=== PATIENT | female | born 1960 | race African-American/Black ===

== ENCOUNTER 2019-07-08 00:02 | Emergency (ER) | payer OTHER ==
[2019-07-08 00:59] VITALS: BP 148/84; PULSE 81; TEMP 98; BMI 30.2
--- NOTE | 2019-07-08 01:01 | PDOC ---
History of Present Illness - General Chief Complaint: Pain, Acute Stated Complaint: BREAST PROBLEM - History of Present Illness Initial Comments: The pt is a 58F w/ a history of HTN and DM who presents for evaluation of a left breast mass for three days. She denies ever noticing it before and has never had a previous breast mass. She denies pain, redness, drainage/discharge, fevers/chills. She denies history of breast or ovarian cancer in her or her primary family members. 07/08/19 01:26 Past History - Past Medical History Allergies/Adverse Reactions: Allergies Allergy/AdvReac Type Severity Reaction Status Date / Time No Known Allergies Allergy Verified 07/08/19 00:30 - Psycho Social/Smoking Cessation Hx Smoking History: Never smoked Hx Alcohol Use: No Drug/Substance Use Hx: No Review of Systems - Review of Systems Able to Perform ROS?: Yes Comments:: GENERAL/CONSTITUTIONAL: No fever or chills. No weakness HEAD, EYES, EARS, NOSE AND THROAT: No change in vision. No change in hearing. No sore throat CARDIOVASCULAR: No chest pain or shortness of breath RESPIRATORY: Denies cough, hemoptysis GASTROINTESTINAL: No nausea, vomiting, diarrhea or constipation GENITOURINARY: No dysuria, frequency, or change in urination MUSCULOSKELETAL: No joint or muscle swelling or pain. No neck or back pain SKIN: No rash NEUROLOGIC: No headache, vertigo, loss of consciousness, or change in strength/ sensation ENDOCRINE: No increased thirst. No abnormal weight change HEMATOLOGIC/LYMPHATIC: No anemia, easy bleeding, or history of blood clots ALLERGIC/IMMUNOLOGIC: No hives or skin allergy 07/08/19 00:58 Is the patient limited Hungarian proficient: No *Physical Exam - Vital Signs Last Vital Signs Temp Pulse Resp BP Pulse Ox 98.0 F 81 18 148/84 99 07/08/19 00:28 07/08/19 00:28 07/08/19 00:28 07/08/19 00:28 07/08/19 00:28 - Physical Exam Comments: GENERAL: Awake, alert, and oriented to person/place/time, in no acute distress HEAD: No signs of trauma, normocephalic, atraumatic EYES: PERRLA, EOMI, sclera anicteric, conjunctiva clear ENT: Hearing grossly normal, nares patent, oropharynx clear without exudates. Moist mucosa LUNGS: No distress, speaks in full sentences, clear to auscultation bilaterally BREAST: 1.5x1.5cm mass palpated at the 12 o'clock position approx 3-4 cm from left nipple HEART: Regular rate and rhythm, normal S1 and S2, no murmurs appreciated, peripheral pulses normal and equal bilaterally ABDOMEN: Soft, nontender, normoactive bowel sounds. No guarding, no rebound EXTREMITIES: Normal inspection, Normal range of motion, no edema. No clubbing or cyanosis NEUROLOGICAL: Cranial nerves II through XII grossly intact. Normal speech, no focal sensorimotor deficits SKIN: Warm, Dry 07/08/19 00:58 Medical Decision Making - Medical Decision Making The pt is a 58F w/ a history of HTN and DM who presents for evaluation of a left breast mass for three days. Ddx: Fibroma, malignancy, less likely abscess Plan for D/C w/ Breast Clinic f/u Discharge instructions and return precautions given Patient in agreement and verbalized understanding Dispo: Home 07/08/19 01:33 Discharge - Discharge Information Problems reviewed: Yes Clinical Impression/Diagnosis: Left breast mass Condition: Stable Disposition: HOME - Admission No - Follow up/Referral Referrals: Dutch Knutson MD [Staff Physician] - Brett Knutson [Staff Physician] - Ledy Baker MD [Staff Physician] - - Patient Discharge Instructions Patient Printed Discharge Instructions: DI for Breast Mass -- Uncertain Cause Additional Instructions: You were seen in the Emergency Department for evaluation of a breast mass. It is important for you to follow up in Breast Clinic to evaluate if the mass could be cancer. Referrals were provided. Call Wednesday to schedule an appointment. Return to the Emergency Department if you develop fevers, chest pain, trouble breathing, worsening pain, change in sensation, worsening symptoms, or any new/ concerning symptoms. - Post Discharge Activity
--- NOTE | 2019-07-08 01:30 | PDOC ---
Attending Attestation - Resident Resident Name: Jesus Cárdenasan - ED Attending Attestation I have performed the following: I have examined & evaluated the patient, The case was reviewed & discussed with the resident, I agree w/resident's findings & plan, Exceptions are as noted - HPI HPI: 07/08/19 01:25 Ms. Guthrie is a 58 yo F who presents to the ER with a complaint of left breast mass The patient has a history of hypertension and diabetes She noticed over the past 2 days a mass in the left breast Patient's family member brought her to the ER for assessment Nontender No drainage No erythema No skin changes - Physicial Exam PE: 07/08/19 01:30 GENERAL: The patient is in no acute distress. ENT: Ears normal, nares patent, oropharynx clear without exudates. Moist mucous membranes. NECK: Normal range of motion BREAST: left breast mass, measures 1.5 x 1.5 cm, firm mass No expressible drainage from the left breast No erythema No lesions on the breast nipple not everted LUNGS: Breath sounds equal, clear to auscultation bilaterally. No wheezes, and no crackles. HEART:Regular rate and rhythm, normal S1 and S2 without murmur, rub or gallop. ABDOMEN: Soft, nontender, normoactive bowel sounds. EXTREMITIES: Normal range of motion, no edema. NEUROLOGICAL: Cranial nerves II through XII grossly intact. Normal speech. No focal neurological deficits. SKIN: Warm, Dry, normal turgor, no rashes or lesions noted. - Medical Decision Making 07/08/19 01:31 58 yo F presenting with left breast mass The patient has no signs of infection Will plan to discharge to home Follow up with Breast Surgeon next week Pt and family member instructed to call on WednesdayJul 10 for appointment Return to the ER for any other concerns or complaints, new symptoms They are aware of the importance of prompt follow up as this could be breast cancer/mass 07/08/19 03:51 Clinical impression: Left breast mass, initial presentation
== END 2019-07-08 01:24 | disposition home or self-care (01) ==
LOC: JER 00:02
DX: N63.20 Unspecified lump in the left breast, unspecified quadrant (principal); I10 Essential (primary) hypertension; E11.9 Type 2 diabetes mellitus without complications
CPT/HCPCS: 99281-25